=== PATIENT | female | born 1940 | race African-American/Black ===

== ENCOUNTER 2016-12-31 16:13 | Inpatient (IN) | payer MEDICARE ==
--- NOTE | ~2016-12-31 | DS ---
Discharge Summary [facility] [address] [place]. [address] NAME: RONAK HANDY : 38 STATUS : DIS IN PAT#: [id number] AGE: 76 ADM/REG DATE : 12/31/16 MR#: [id number] REPORT SERV DATE: 01/05/17 DICTATED BY: JOEL LINDSEY DATE: 01/04/17 REPORT STATUS : Draft TRANSCRIBED BY: MODL DATE: 01/04/17 ADMISSION DATE: 12/31/2016 DISCHARGE DATE: 01/04/2017 DISCHARGE DIAGNOSES: Include: 1. Neck cellulitis. 2. Pharyngitis. 3. Sepsis with positive blood cultures, growing Streptococcus pneumoniae. 4. Leukocytosis. 5. Dental caries. 6. Dysphagia, resolved. 7. History of hypertension. 8. Anxiety. 9. Diarrhea, improved. DISCHARGE MEDICATIONS: Aspirin 81 mg daily, Aleve 220 mg daily p.r.n. for pain, Celexa 40 mg daily, simvastatin 40 mg daily, Prilosec 20 mg daily, Diovan and hydrochlorothiazide 320/12.5 one tablet daily, Ativan 0.5 mg twice a day p.r.n. for anxiety, multivitamin one tablet daily, Zyrtec 10 mg daily p.r.n. for allergies, and Levaquin 750 mg daily for 14 days with Florastor one capsule p.o. b.i.d. for 14 days as well. HISTORY OF PRESENT ILLNESS: This is a very pleasant, 76-year-old female, who presented originally with neck swelling, trouble talking, trouble swallowing. Please see my initial H and P as the patient admitted to the Hospitalist Service for further evaluation and treatment. She was started on empiric antibiotic therapy. Lab work was ordered and followed. Cultures were obtained and the CT scan of the neck was ordered. CONSULTANTS DURING THIS ADMISSION: Include ENT, Dr. Page and Infectious Disease, Dr. Quick. PROCEDURES AND IMAGING DURING THIS ADMISSION: Include a CT scan of the neck that showed borderline prominent bilateral cervical lymphadenopathy, the nonspecific minimal mucosal thickening in left maxillary and ethmoid sinuses, but no other significant abnormalities that were noted. CONTINUATION OF HOSPITAL COURSE: The patient had began to feel better by the following day with treatment of antibiotics and IV steroids. The swelling had began to subside and she was beginning to swallow better. Her diet was slowly advanced. Dr. Page, ENT, reviewed CT scan of patient and decided there were no surgical indications at this time. Of note, a blood culture did come back positive, so a consult was placed to Infectious Disease for followup and an echocardiogram was obtained. The patient's white blood cells trended downward. She remained afebrile. Her antibiotics were continued with Unasyn and Rocephin IV while inpatient, and the echocardiogram was performed showing ejection fraction of 54% with only some mild diastolic dysfunction, but no valvular dysfunction noted. She continued to do well with response to her antibiotics, swelling continued to decrease. After discussion with Dr. Quick, Infectious Disease, it was determined she would be safe for Discharge Summary [address] [place]. [address] NAME: RONAK HANDY : 38 STATUS : DIS IN PAT#: [id number] AGE: 76 ADM/REG DATE : 12/31/16 MR#: [id number] REPORT SERV DATE: 01/05/17 DICTATED BY: JOEL LINDSEY DATE: 01/04/17 REPORT STATUS : Draft TRANSCRIBED BY: MODL DATE: 01/04/17 discharge home on 01/04/2017 with two-week course of Levaquin. Prescription has been written. She will need to follow up with her primary care in the next 10-14 days. She has been instructed to follow up with dentist and Oral Surgery for an evaluation for teeth extraction given her significant dental caries. Updated the patient and the patient's family at bedside. They are in agreement with this plan going forward. Questions were answered. Please note, greater than 30 minutes was spent on this discharge for medication teaching, followup planning, and further disposition. DICTATED BY: Joel Lindsey NP CSC/MACIL Joel Lindsey NP / [id number] CC: MD Jacob Mayes M.D.
--- NOTE | ~2016-12-31 | CN ---
Consultation Report [facility] [address] [place]. [address] NAME: RONAK HANDY : 38 STATUS : ADM IN [facility]#: [id number] AGE: 76 ADM/REG DATE : 12/31/16 MR#: [id number] REPORT SERV DATE: 01/01/17 DICTATED BY: JACOB MORTON DATE: 01/01/17 REPORT STATUS : Draft TRANSCRIBED BY: MODL DATE: 01/01/17 INFECTIOUS DISEASE CONSULTATION DATE OF CONSULTATION: REASON FOR CONSULT: Neck swelling and bacteremia. HISTORY OF PRESENT ILLNESS: A 76-year-old black lady with a history of hypertension, hyperlipidemia, TIA, acid reflux, who became ill about six days ago with right neck swelling and progressed with entire anterolateral neck swelling. There is no local injury to precede this. No scratch or bites that she knows of. She just noticed an indurated area that further progressed to a kind of around the neck anteriorly and toward the upper chest. She had no fever, chills, but she has been having night sweats for a while. No tooth aches. At some point, she could not swallow or speak properly, but this came later. She did not have any particular sore throat prior to this episode. She does have occasional "allergies" during springtime. No runny nose. No vomiting. She did have a few loose stools just later in this disease. She reports no history of boils or wounds. No shortness of breath. No bone pains. She came to the emergency room on 12/31/2016, and she was given Rocephin and Solu-Medrol. LABORATORY WORK: Showed a WBC of 14. Hemoglobin A1c 5.9. Lactic acid 1.3. Procalcitonin 4. Liver enzymes within normal limits. Creatinine 0.8. Chest x-ray, no active disease. CT of the neck with contrast showed just soft tissue prominence in the pharyngeal prevertebral soft tissues that appear to be symmetric. There is no bony erosion, no fluid collection. There is minimal mucosal thickening in the left maxillary and ethmoid sinuses. Minimal parotid enhancement and cervical lymph nodes prominence, but it is bilateral. She was given Unasyn and steroids. Solu-Medrol was subsequently stopped. She is afebrile. Creatinine 0.6. WBC 13, hemoglobin 10 today. She feels a little better. She ate something for the first time after three days. PAST MEDICAL HISTORY: As I mentioned, plus hysterectomy, bladder tack, and cataract surgery. ALLERGIES: NONE. FAMILY HISTORY: Heart disease and diabetes. MEDICATIONS ON ADMISSION: Aspirin, Zyrtec as needed, Celexa, Ativan as needed, multivitamin with minerals, Aleve as needed, Prilosec, Zocor, and valsartan with hydrochlorothiazide. SOCIAL HISTORY: Lives alone. Has no pets. 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 She feeds him. Does not smoke. Does not drink alcohol. Her son helps her. PHYSICAL EXAMINATION: GENERAL: On exam, she is alert and awake. HEENT: Sclerae seem to be white. Teeth look eroded on the lower jaw. There are some broken ones on the upper jaw. She has significant erythema in the right posterior pharynx. There is soft tissue induration on the right lateral neck and going anteriorly to the left lateral neck and also in the submandibular area bilaterally. The area is also tender to palpation. LUNGS: With a little decreased sounds in the left base. HEART: Regular rhythm without murmurs. ABDOMEN: Obese, soft, nontender. SKIN: Feet and hands without lesions. ASSESSMENT AND PLAN: 1. Neck swelling, which seems to be in the soft tissues. 2. Streptococcal bacteremia. Her blood cultures done on admission are growing gram- positive cocci in chains, which are not identified yet. Nucleic acid test is still pending. 3. Right side pharyngitis by exam. In regard to the cause of infection, we would be concerned about a parapharyngeal source as well as dental infection. Dr. Miller of Radiology did not see any obvious abscess in the pharynx or dental. She will eventually need dental evaluation. She was already seen by Dr. Page with ENT. I will send him a message and will discuss with him. For now, continue Unasyn, try to obtain a throat culture, follow up the final blood cultures. Discontinue the steroids. I discussed with the patient, her son, and the nurse. TIME SPENT: An hour and five minutes. ALIZA/KATHERINE Jacob Morton M.D. / [id number] CC: MD Jacob Mayes M.D.
--- NOTE | ~2016-12-31 | HP ---
History And Physical [facility] [id number] [place]. [address] NAME: RONAK HANDY : 38 STATUS : ADM IN [facility]#: [id number] AGE: 76 ADM/REG DATE : 12/31/16 MR#: [id number] REPORT SERV DATE: 12/31/16 DICTATED BY: JOEL LINDSEY DATE: 12/31/16 REPORT STATUS : Draft TRANSCRIBED BY: KATHERINE DATE: 12/31/16 DATE OF ADMISSION: 12/31/2016 CHIEF COMPLAINT: Neck swelling, trouble talking, and trouble swallowing. HISTORY OF PRESENT ILLNESS: This is a very pleasant 76-year-old female, who states that last Thursday, she woke up, and she noticed some small amount of swelling on the right side of her neck that felt like a nodule. This swelling began to spread from the right side of her neck around to the left side of her neck through the , Thursday and Thursday, and then proceeded to continue swelling up to her face. She stated that by Thursday evening, she had begun to have mild trouble swallowing and mild trouble speaking, and this has gotten somewhat worse over the past 24 to 48 hours. She states that she did not check her temperature at home, but she did have some night sweats and mild dizziness. The main concerns were her difficulty being able to swallow anything, a sore throat, and some difficulty speaking. She denies any significant shortness of breath. Denies any chest pain. Denies any nausea or vomiting. Denies any abdominal pain, but she does say she has some mild upper airway congestion. She has had some difficulty sleeping the past two nights as well and is quite anxious over the swelling in her neck and the significant sore throat. ALLERGIES: SHE DENIES ANY FOOD OR DRUG ALLERGIES, BUT DOES HAVE SEASONAL ALLERGIES. FAMILY HISTORY: Mother with [place], father with [place], a sister with diabetes. SOCIAL HISTORY: She denies any tobacco or alcohol use. SURGICAL HISTORY: Includes bladder tack, partial hysterectomy, and cataract surgery. PAST MEDICAL HISTORY: Hypertension, hyperlipidemia, prior TIAs, GERD, and anxiety. REVIEW OF SYSTEMS: Ten point is negative except for pertinents mentioned in the above HPI. PHYSICAL EXAMINATION: VITAL SIGNS: O2 saturation is 92% on room air, temperature 101.1, pulse rate of 118, respiratory rate of 18, blood pressure 130/44. GENERAL: She is alert and oriented x3 for this exam. No focal deficits. She is cooperative and awake. NECK: She has bilateral neck swelling, submandibular area. Her tongue is somewhat swollen. She has mild garbled speech. There is redness noted bilateral neck as well and it is mildly tender to palpation. LUNGS: Clear to auscultation bilaterally with normal respiratory effort. CARDIOVASCULAR: No murmurs, rubs, or gallops appreciated. Regular rate and rhythm. Sinus tach per the heart monitor. ABDOMEN: Soft and nontender with active bowel sounds. No appreciable edema is noted. EXTREMITIES: Normal distal pulses. HEENT: PERRLA is noted. Sclerae are clear otherwise. History And Physical [address] [address] NAME: RONAK HANDY : 38 STATUS : ADM IN [facility]#: [id number] AGE: 76 ADM/REG DATE : 12/31/16 MR#: [id number] REPORT SERV DATE: 12/31/16 DICTATED BY: JOEL LINDSEY DATE: 12/31/16 REPORT STATUS : Draft TRANSCRIBED BY: KATHERINE DATE: 12/31/16 SKIN: Warm and dry. Cranial nerves 2 through 12 intact. LABORATORY DATA: Lab work shows sodium 137, potassium 3.3, BUN 16, creatinine 0.83, white blood cells 14.0, hemoglobin 11.6, hematocrit 34.8. Negative troponin. Chest x-ray that is personally reviewed by myself does not indicate any acute findings. ASSESSMENT: 1. Submandibular swelling and infection, questionable abscess, positive septic criteria including tachycardia, leukocytosis, and fever. 2. Hypokalemia, 3.3. 3. History of hypertension. 4. History of hyperlipidemia. 5. History of anxiety. 6. History of transient ischemic attack. 7. History of gastroesophageal reflux disease. PLAN: We will plan on treating with IV antibiotics, Unasyn. We will give IV steroids x3 doses, replace her electrolytes, follow her lab work closely. We will keep the patient n.p.o. for now until swelling starts to subside. Check CT scan of her neck and Dr. Sudheer Page, ENT, to follow up with the patient. He has been notified. Monitor her blood pressures. We will provide reasonable pain and nausea control, and p.r.n. blood pressure and fever medicine. I have updated the patient at bedside. She is in agreement with this plan going forward. CHRISTAL/KATHERINE Joel Lindsey NP / [id number] CC: Kinsey Lazo M.D.
--- NOTE | ~2016-12-31 | CN ---
Consultation Report [facility] [address] [place]. [address] NAME: RONAK CHU : 38 STATUS : ADM IN [facility]#: [id number] AGE: 76 ADM/REG DATE : 12/31/16 MR#: [id number] REPORT SERV DATE: 01/01/17 DICTATED BY: HAILEE SABA DATE: 01/01/17 REPORT STATUS : Draft TRANSCRIBED BY: MODL DATE: 01/01/17 CONSULTATION DATE OF CONSULTATION: 01/01/2017 REASON FOR CONSULTATION: Neck swelling. HISTORY OF PRESENT ILLNESS: Ms. Chu is a 76-year-old female who began having issues with the swelling on the right side of her neck last Thursday, then it began to spread from the right side to the left side over the weekend and again then at that point began to have mild trouble swallowing and some trouble speaking. Over the last 24 to 48 hours, she reports some night sweats, but no tatiana fever. She states since her hospital admission, her swelling and soreness have improved, but not completely resolved. She denies any shortness of breath. ALLERGIES: NONE. FAMILY HISTORY: Mother with [place]. Father with [place]. Sister with diabetes. SOCIAL HISTORY: No tobacco or alcohol use. PAST SURGICAL HISTORY: Bladder tack, partial hysterectomy, and cataract surgery. PAST MEDICAL HISTORY: Hypertension, hyperlipidemia, TIA, reflux disease, and anxiety. PHYSICAL EXAMINATION: GENERAL: The patient is awake, alert, and appropriate. HEENT: Both ears: External canals and tympanic membranes intact and clear. The nose shows mild crusting, otherwise clear. Oral cavity: Pharynx shows dry mucous membranes with thick mucus in the oral cavity. No floor of mouth or tongue swelling. She has very poor dentition with multiple carious teeth. NECK: Shows some mild tenderness diffusely, slightly worse than submandibular region bilaterally, but there is no fluctuance and no distinct abscess on physical exam. IMAGING: A CT scan of the neck was performed yesterday showing borderline bilateral cervical lymphadenopathy, but no abnormalities of the submandibular gland. IMPRESSION: Neck cellulitis with unclear specific etiologies, most likely representing dental abscess with associated neck cellulitis. RECOMMENDATION: Continue IV antibiotics. Will likely able to be discharged home on oral antibiotics tomorrow and will need to be referred to her dentist for further evaluation and treatment. Consultation Report [facility] [id number] [facility] [place]. [address] NAME: RONAK CHU : 38 STATUS : ADM IN PAT#: [id number] AGE: 76 ADM/REG DATE : 12/31/16 MR#: [id number] REPORT SERV DATE: 01/01/17 DICTATED BY: HAILEE SABA DATE: 01/01/17 REPORT STATUS : Draft TRANSCRIBED BY: KATHERINE DATE: 01/01/17 SHIRA/KATHERINE Hailee Saba M.D. / [id number] CC: MD Jacob Mayes M.D.
[2016-12-31 13:36] LABS: HEMATOCRIT 34.8 % (36.0-48.0); HEMOGLOBIN 11.6 g/dL (12.0-16.0); MEAN CORPUS HGB CONC 33.3 g/dL (32.0-36.0); MEAN CORPUSCULAR VOLUME 71.9 fL (80-100); MEAN PLATELET VOLUME 8.8 fL (9.2-13.0); PLATELET COUNT 269 10/3/uL (150-400); RED CELL COUNT 4.84 10/6/uL (4.0-5.6)
[2016-12-31 13:54] LABS: A/G RATIO 0.5 (0.7-1.9); ALBUMIN 2.7 G/DL (3.5-5.0); ALKALINE PHOSPHATASE 72 U/L (45-117); BUN (BLOOD UREA NITROGEN) 16 MG/DL (6-23); CALCIUM, SERUM 9.1 MG/DL (8.5-10.4); CHLORIDE, SERUM 101 MMOL/L (96-112); CO2 (CARBON DIOXIDE) 27 MMOL/L (24-34); CREATININE 0.83 MG/DL (0.55-1.02); GFR AFRICAN AMERICAN 78 ML/MIN (>=60); GFR NON AFRICAN AMERICAN 68 ML/MIN (>=60); GLUCOSE, SERUM 112 MG/DL (60-99); POTASSIUM, SERUM 3.3 MMOL/L (3.5-5.3); SGOT(AST) 24 U/L (5-40); SGPT(ALT) 14 U/L (5-65); SODIUM, SERUM 137 MMOL/L (135-148); TOTAL BILIRUBIN 1.1 MG/DL (0-1.2); TOTAL PROTEIN 7.7 G/DL (6.0-8.5)
[2016-12-31 14:01] LABS: LYMPHOCYTES 12 %; LYMPHOCYTES ABSOLUTE (CALC) 1.68 10/3/uL (0.67-4.30); MONOCYTES 1 %; MONOCYTES ABSOLUTE (CALC) 0.14 10/3/uL (0.21-1.20); NEUTROPHILS ABSOLUTE (CALC) 12.18 10/3/uL (2.02-8.40); PLATELET ESTIMATE ADQ (ADEQUATE); SEGMENTED NEUTROPHIL (0) 87 %; TOTAL NUCLEATED CELLS 100
[2016-12-31 14:39] LABS: INTERNATIONAL NORMAL RATI 1.2 UNITS (-); PROTIME (NOT ORD) 15.1 SEC (12.0-14.5)
[2016-12-31 14:40] LABS: PARTIAL THROMBO TIME 34.9 SEC (22.5-37.2)
[2016-12-31 15:26] LABS: TROPONIN I <0.02 NG/ML (<0.05)
[~2016-12-31 16:13] MED LIST: ALEVE220 MG PO; ATV.5 PO; CELEXA40 MG PO; CENTRUM PO; DIOVAN HC2 PO; HALF81 PO; PRILO PO; ZOCOR40 PO; ZYRTEC ALLGY10 MG PO
[2016-12-31 19:20] LABS: ULTRASENSITIVE TSH 0.373 MCIU/ML (0.358-3.740)
[2016-12-31 20:57] LABS: PROCALCITONIN 4.27 ng/mL (<0.5)
[2017-01-01 07:45] LABS: BASOPHILS 0.1 %; BASOPHILS ABSOLUTE 0.01 10/3/uL (0.0-0.16); EOSINOPHILS 0 %; HEMOGLOBIN 10.2 g/dL (12.0-16.0); IMMATURE GRANULOCYTES 0.5 %; IMMATURE GRANULOCYTES ABSOLUTE 0.07 10/3/uL (0.0-0.11); LYMPHOCYTES 4.1 %; LYMPHOCYTES ABSOLUTE 0.55 10/3/uL (0.67-4.30); MEAN CORPUSCULAR HEMOGLOB 23.8 pg (26.0-34.0); NEUTROPHILS 92.3 %; NEUTROPHILS ABSOLUTE 12.39 10/3/uL (2.02-8.40); PLATELET COUNT 268 10/3/uL (150-400); RBC DISTRIBUTION WIDTH 15.1 % (12.0-16.0); RED CELL COUNT 4.29 10/6/uL (4.0-5.6); WHITE BLOOD CELLS 13.4 10/3/uL (4.5-10.5)
[2017-01-01 07:46] LABS: HEMATOCRIT 30.9 % (36.0-48.0); MANUAL DIFF NO %
[2017-01-01 07:56] LABS: BUN (BLOOD UREA NITROGEN) 18 MG/DL (6-23); CALCIUM, SERUM 8.3 MG/DL (8.5-10.4); CHLORIDE, SERUM 109 MMOL/L (96-112); CO2 (CARBON DIOXIDE) 26 MMOL/L (24-34); CREATININE 0.63 MG/DL (0.55-1.02); GFR AFRICAN AMERICAN 100 ML/MIN (>=60); GFR NON AFRICAN AMERICAN 86 ML/MIN (>=60); GLUCOSE, SERUM 123 MG/DL (60-99); SODIUM, SERUM 143 MMOL/L (135-148)
[2017-01-02 05:54] LABS: BASOPHILS 0.1 %; BASOPHILS ABSOLUTE 0.01 10/3/uL (0.0-0.16); EOSINOPHILS 0 %; HEMATOCRIT 29.1 % (36.0-48.0); HEMOGLOBIN 9.8 g/dL (12.0-16.0); IMMATURE GRANULOCYTES 0.8 %; IMMATURE GRANULOCYTES ABSOLUTE 0.14 10/3/uL (0.0-0.11); LYMPHOCYTES 3.7 %; LYMPHOCYTES ABSOLUTE 0.63 10/3/uL (0.67-4.30); MEAN CORPUS HGB CONC 33.7 g/dL (32.0-36.0); MEAN CORPUSCULAR VOLUME 71.3 fL (80-100); MEAN PLATELET VOLUME 8.8 fL (9.2-13.0); MONOCYTES 5.2 %; NEUTROPHILS 90.2 %; NEUTROPHILS ABSOLUTE 15.51 10/3/uL (2.02-8.40); PLATELET COUNT 281 10/3/uL (150-400); RBC DISTRIBUTION WIDTH 15.1 % (12.0-16.0); RED CELL COUNT 4.08 10/6/uL (4.0-5.6); WHITE BLOOD CELLS 17.2 10/3/uL (4.5-10.5)
[2017-01-02 05:57] LABS: MANUAL DIFF NO %
[2017-01-03 06:47] LABS: BASOPHILS 0.1 %; BASOPHILS ABSOLUTE 0.01 10/3/uL (0.0-0.16); EOSINOPHILS 0.2 %; EOSINOPHILS ABSOLUTE 0.02 10/3/uL (0.0-0.53); HEMOGLOBIN 9.4 g/dL (12.0-16.0); IMMATURE GRANULOCYTES 1.1 %; IMMATURE GRANULOCYTES ABSOLUTE 0.14 10/3/uL (0.0-0.11); LYMPHOCYTES 16.8 %; LYMPHOCYTES ABSOLUTE 2.06 10/3/uL (0.67-4.30); MEAN CORPUS HGB CONC 32.4 g/dL (32.0-36.0); MEAN CORPUSCULAR VOLUME 71.1 fL (80-100); MEAN PLATELET VOLUME 8.9 fL (9.2-13.0); MONOCYTES 7.9 %; MONOCYTES ABSOLUTE 0.97 10/3/uL (0.21-1.20); NEUTROPHILS 73.9 %; NEUTROPHILS ABSOLUTE 9.07 10/3/uL (2.02-8.40); PLATELET COUNT 309 10/3/uL (150-400); RBC DISTRIBUTION WIDTH 15.2 % (12.0-16.0); RED CELL COUNT 4.08 10/6/uL (4.0-5.6); WHITE BLOOD CELLS 12.3 10/3/uL (4.5-10.5)
[2017-01-03 06:49] LABS: CHLORIDE, SERUM 104 MMOL/L (96-112); CREATININE 0.76 MG/DL (0.55-1.02); GFR AFRICAN AMERICAN 87 ML/MIN (>=60); GFR NON AFRICAN AMERICAN 75 ML/MIN (>=60); POTASSIUM, SERUM 3.4 MMOL/L (3.5-5.3); SODIUM, SERUM 140 MMOL/L (135-148)
[2017-01-03 06:52] LABS: BUN (BLOOD UREA NITROGEN) 11 MG/DL (6-23); CO2 (CARBON DIOXIDE) 31 MMOL/L (24-34); GLUCOSE, SERUM 86 MG/DL (60-99)
[2017-01-03 06:53] LABS: MANUAL DIFF NO %
[2017-01-04] MEDS ORDERED: FLORASTOR250 MG PO (16:16)
[2017-01-04] MEDS ORDERED: LEVAQUIN750 MG PO (16:16)
== END 2017-01-04 18:31 | disposition home or self-care (01) | DRG 872 ==
LOC: ER 16:13 → 4SO 17:19
PROVIDERS: Emergency Medicine; Nurse Practitioner; Nurse Practitioner Family
DX: A40.3 Sepsis due to Streptococcus pneumoniae (principal); L03.221 Cellulitis of neck; I10 Essential (primary) hypertension; K12.2 Cellulitis and abscess of mouth; E87.6 Hypokalemia; F41.9 Anxiety disorder, unspecified; Z86.73 Personal history of transient ischemic attack (TIA), and cerebral infarction without residual deficits; K21.9 Gastro-esophageal reflux disease without esophagitis; R13.10 Dysphagia, unspecified; J02.9 Acute pharyngitis, unspecified; K02.9 Dental caries, unspecified; R19.7 Diarrhea, unspecified; E78.5 Hyperlipidemia, unspecified; Z79.82 Long term (current) use of aspirin
CPT/HCPCS: 70491; 71020; 80048; 80053; 82962; 83036; 83605; 83735; 84145; 84443; 84484; 85007; 85025; 85027; 85610; 85730; 87040; 87070; 87077; 87150; 87186; 87880; 93005; 96374; 96375; 99285; A9270-GY; C8929; J0295; J2920; J2930; Q9957; Q9967